=== PATIENT | female | born 1975 | race Caucasian/White ===

== ENCOUNTER 2016-06-24 13:08 | Observation (INO) | payer MEDICARE ==
[~2016-06-24] VITALS: Ht 165.1 cm; Wt 59.9 kg
[2016-06-24 16:10] LABS: HEMOGLOBIN 7.4 gm/dl (12.3-15.3); RED BLOOD COUNT 3.01 M/UL (4.00-5.10); WHITE BLOOD COUNT 8.8 K/UL (4.5-11.0)
[2016-06-24 16:20] LABS: BUN/CREATININE RATIO 10 (0-10)
[2016-06-25] MEDS ORDERED: IMITREX100 MG PO (02:49)
[2016-06-25 02:54] LABS: HEMOGLOBIN 8.3 gm/dl (12.3-15.3); WHITE BLOOD COUNT 9.9 K/UL (4.5-11.0)
[2016-06-25 02:59] LABS: RED BLOOD COUNT 3.4 M/UL (4.00-5.10)
[2016-06-25 03:19] LABS: BUN/CREATININE RATIO 10 (0-10)
[2016-06-26 04:43] LABS: WHITE BLOOD COUNT 8.4 K/UL (4.5-11.0)
[2016-06-26 04:49] LABS: RED BLOOD COUNT 2.87 M/UL (4.00-5.10)
[2016-06-26 04:51] LABS: HEMOGLOBIN 6.9 gm/dl (12.3-15.3)
[2016-06-26 05:02] LABS: BUN/CREATININE RATIO 11 (0-10)
[2016-06-26 17:22] LABS: HEMOGLOBIN 7.4 gm/dl (12.3-15.3)
[2016-06-26 17:38] LABS: BUN/CREATININE RATIO 13 (0-10)
[2016-06-28 05:34] LABS: HEMOGLOBIN 7.2 gm/dl (12.3-15.3)
[2016-06-28] MEDS ORDERED: FERROUS SULFAT325 MG PO (13:15)
[2016-06-28] MEDS ORDERED: BACTRIM DS TAB1 EACH PO (13:20)
== END 2016-06-28 13:49 | disposition home or self-care (01) ==
LOC: ER1 13:08 → M/S 17:43 → ZEROF 17:43 → M/S 06-25 01:37
PROVIDERS: Emergency Medicine; ADMIT Internal Medicine
DX: N30.00 Acute cystitis without hematuria (principal); B96.20 Unspecified Escherichia coli [E. coli] as the cause of diseases classified elsewhere; E87.6 Hypokalemia; E83.42 Hypomagnesemia; I38 Endocarditis, valve unspecified; F19.10 Other psychoactive substance abuse, uncomplicated; I45.81 Long QT syndrome; D50.9 Iron deficiency anemia, unspecified; G93.40 Encephalopathy, unspecified; B19.20 Unspecified viral hepatitis C without hepatic coma
CPT/HCPCS: 36415; 70450; 71010; 80048; 80053; 80076; 80307; 81001; 82272; 82550; 82553; 82728; 83540; 83550; 83735; 83874; 84132; 84443; 84484; 84703; 85014; 85018; 85025; 85027; 85379; 85610; 85730; 86850; 86900; 86901; 86920; 87040; 87077; 87086; 87186; 93005; 96374; 99285; G0378; J0696; J7050